=== PATIENT | female | born 1950 | race African-American/Black ===

== ENCOUNTER 2017-04-15 23:54 | Emergency (ER) | payer MEDICAID ==
[~2017-04-15] VITALS: Ht 160 cm; Wt 65.0 kg
[~2017-04-15 23:54] MED LIST: BRIM5DRO EACHEYE; DORZ10DR12 EACHEYE; XALAO EACHEYE
[2017-04-16] MEDS ORDERED: ACETAMINOPHEN 325MG TABLET PO ONE (07:45)
[2017-04-16 12:50] VITALS: BP 132/60
== END 2017-04-16 13:16 | disposition home or self-care (01) ==
LOC: ER 23:54
DX: M25.562 Pain in left knee (principal); Z59.0 Homelessness
CPT/HCPCS: 99283

== ENCOUNTER 2017-07-20 23:36 | Emergency (ER) | payer MEDICARE, MEDICAID ==
[~2017-07-20] VITALS: Ht 157.5 cm; Wt 75.0 kg
[2017-07-21] MEDS ORDERED: DIPHENHYDRAMINE 25MG CAPSULE PO ONE (06:15)
[2017-07-21] MEDS ORDERED: KETOROLAC 30MG/ML VIAL IM ONE (06:15)
[2017-07-21 06:50] VITALS: BP 144/74
== END 2017-07-21 07:10 | disposition home or self-care (01) ==
LOC: ER 23:36
DX: M54.5 Low back pain (principal); L29.9 Pruritus, unspecified; W07.XXXA Fall from chair, initial encounter; Y93.89 Activity, other specified; Y92.89 Other specified places as the place of occurrence of the external cause; Y99.8 Other external cause status
CPT/HCPCS: 99283; J1885; Q0163